=== PATIENT | female | born 1965 | race Caucasian/White ===

== ENCOUNTER 2016-09-24 21:42 | Emergency (ER) | payer BC ==
[2016-09-24 19:01] LABS: BASOPHILS 0.5 %; BASOPHILS ABSOLUTE 0.05 10/3/uL (0.0-0.16); EOSINOPHILS 3.3 %; EOSINOPHILS ABSOLUTE 0.31 10/3/uL (0.0-0.53); ER CBC TAT 0 Hrs 05 Mins; HEMATOCRIT 45.8 % (36.0-48.0); HEMOGLOBIN 15.8 g/dL (12.0-16.0); IMMATURE GRANULOCYTES 0.2 %; IMMATURE GRANULOCYTES ABSOLUTE 0.02 10/3/uL (0.0-0.11); LYMPHOCYTES 29.7 %; LYMPHOCYTES ABSOLUTE 2.82 10/3/uL (0.67-4.30); MANUAL DIFF NO %; MEAN CORPUS HGB CONC 34.5 g/dL (32.0-36.0); MEAN CORPUSCULAR VOLUME 95.6 fL (80-100); MEAN PLATELET VOLUME 9.7 fL (9.2-13.0); MONOCYTES 8.9 %; MONOCYTES ABSOLUTE 0.85 10/3/uL (0.21-1.20); NEUTROPHILS 57.4 %; NEUTROPHILS ABSOLUTE 5.45 10/3/uL (2.02-8.40); PLATELET COUNT 347 10/3/uL (150-400); RBC DISTRIBUTION WIDTH 13.7 % (12.0-16.0); RED CELL COUNT 4.79 10/6/uL (4.0-5.6); WHITE BLOOD CELLS 9.5 10/3/uL (4.5-10.5)
[2016-09-24 19:08] LABS: INTERNATIONAL NORMAL RATI 2.1 UNITS (-); PARTIAL THROMBO TIME 47.8 SEC (22.5-37.2)
[2016-09-24 19:18] LABS: BUN (BLOOD UREA NITROGEN) 13 MG/DL (6-23); CALCIUM, SERUM 9.4 MG/DL (8.5-10.4); CHEST PAIN PROFILE TAT 0 Hrs 22 Mins; CHLORIDE, SERUM 101 MMOL/L (96-112); GFR AFRICAN AMERICAN 56 ML/MIN (>=60); GFR NON AFRICAN AMERICAN 48 ML/MIN (>=60); GLUCOSE, SERUM 75 MG/DL (60-99); POTASSIUM, SERUM 3.9 MMOL/L (3.5-5.3); SODIUM, SERUM 138 MMOL/L (135-148); TROPONIN I <0.02 NG/ML (<0.05)
[2016-09-24 19:20] LABS: CO2 (CARBON DIOXIDE) 30 MMOL/L (24-34); CREATININE 1.28 MG/DL (0.55-1.02)
[2016-10-13] MEDS ORDERED: ASAB PO (08:43)
[2016-10-13] MEDS ORDERED: COREG6 PO (08:43)
[2016-10-13] MEDS ORDERED: SUCR PO (08:44)
[2016-10-13] MEDS ORDERED: MAX25 PO (08:44)
[2016-10-13] MEDS ORDERED: PROAIRRESP INH (08:44)
[2016-10-13] MEDS ORDERED: VIVELLE SY0.1 MG/24 TOP (08:44)
[2016-10-13] MEDS ORDERED: VOLTAREN1 % TOP (08:45)
[2016-10-13] MEDS ORDERED: AMB10 PO (08:45)
[2016-10-27] MEDS ORDERED: [UNRECOGNIZED DRUG - CODE] PO (09:17)
[2016-11-23] MEDS ORDERED: DORYX100 MG PO (10:43)
[2016-12-05] MEDS ORDERED: ULTRAM50 PO (12:27)
== END 2016-09-24 23:50 | disposition home or self-care (01) ==
LOC: ER 21:42
PROVIDERS: Emergency Medicine
DX: R07.9 Chest pain, unspecified (principal); R06.00 Dyspnea, unspecified; N17.9 Acute kidney failure, unspecified; J45.909 Unspecified asthma, uncomplicated; Z87.442 Personal history of urinary calculi; Z85.828 Personal history of other malignant neoplasm of skin; Z88.2 Allergy status to sulfonamides; Z88.1 Allergy status to other antibiotic agents
CPT/HCPCS: 71020; 71275; 80048; 83735; 84484; 85025; 85610; 85730; 93005; 99285; Q9967

== ENCOUNTER 2016-09-25 17:14 | Inpatient (IN) | payer BC ==
--- NOTE | ~2016-09-25 | HP ---
History And Physical [place] [address] [facility] [place]. [address] NAME: OLESYA FATIMA : 65 STATUS : ADM Tyesha PAT#: [id number] AGE: 51 ADM/REG DATE : 09/25/16 MR#: [id number] REPORT SERV DATE: 09/26/16 DICTATED BY: JR. POLLARD WILLIAM JOHN DATE: 09/25/16 REPORT STATUS : Draft TRANSCRIBED BY: YA DATE: 09/25/16 DATE OF ADMISSION: 09/25/2016 HISTORY OF PRESENT ILLNESS: A 51-year-old white female, transferred from [facility] in [place], [place] for hypoxia. The patient says the episode began 4 to 6 months ago with fatigue, hacking cough, mostly nonproductive, occasionally productive of frothy white sputum and hoarseness of 6 days duration. Then about two days ago, she felt poorly. They checked her blood pressure at home and did not get a reading. She also had substernal chest pain which was reported to be substernal without radiation. It was accompanied by nausea, but no vomiting. There was dizziness, shortness of breath. There were no identified likely aggravating or alleviating factors. She came to the emergency room at [facility] where workup was largely negative except hypoxia which improved with conservative measures. She had an appointment with her cigarette packing machine operator this morning. She went to her Medical Sales Associate's appointment, and during the appointment, developed diaphoresis, shortness of breath, and hypoxia, and was sent to [facility] where the workup was as below. She was subsequently transferred to [facility] for further testing. Currently, the patient denies all complaints except shortness of breath. She is saturating approximately 90% to 92% on 3 L oxygen by nasal cannula. PAST MEDICAL HISTORY: 1. Reported history of diastolic heart failure, followed by Dr. Lockhart. 2. Hypothyroidism. 3. Fibromyalgia. 4. Anxiety and depression. 5. Dyslipidemia. 6. Raynaud syndrome. 7. History of transient ischemic attack. 8. History of cholecystectomy. 9. History of left ACL repair. 10. section. 11.Appendectomy. 12.Hysterectomy. 13.History of factor V Leiden mutation. MEDICATIONS: 1. Bupropion 100 daily. 2. Coreg 6.25 twice a day. 3. Coumadin 5 mg on Sunday, , Sunday; 2.5 mg on Sunday, Sunday, Sunday, and Sunday. 4. Zetia 10 mg daily. 5. Klonopin 1 mg daily. 6. Pravachol 20 mg daily. 7. Synthroid 100 mcg daily. History And Physical [address] [place]. [address] NAME: OLESYA FATIMA : 65 STATUS : ADM Tyesha PAT#: [id number] AGE: 51 ADM/REG DATE : 09/25/16 MR#: [id number] REPORT SERV DATE: 09/26/16 DICTATED BY: JR. POLLARD WILLIAM JOHN DATE: 09/25/16 REPORT STATUS : Draft TRANSCRIBED BY: YA DATE: 09/25/16 ALLERGIES: AZITHROMYCIN AND SULFA. FAMILY HISTORY: Mother living in her 70s, has a history of stroke, hypothyroidism, and hypertension. Father living in his 70s, has a history of myocardial infarction, bladder cancer, and dementia. SOCIAL HISTORY: Lives in [place] with her and son. She smoked approximately 1/2-pack year total, quitting over 10 years ago. Denies alcohol or illicit drugs. She is a housewife. REVIEW OF SYSTEMS: Negative in all 12 systems reviewed except does admit to recent weight gain, headache, palpitations, chronic cough as above, chronic shortness of breath as above, occasional nausea without vomiting, recent diarrhea, history of depression, and factor V Leiden mutation. PHYSICAL EXAMINATION: VITAL SIGNS: Temperature 98.1, blood pressure 115/76, heart rate 82, respiratory rate 16, SpO2 is 94% on 2 L. GENERAL: The patient is alert and oriented. No conversational dyspnea. No use of accessary muscles. HEENT: Her pupils are equal, round, and reactive to light. Extraocular motion intact. Sclerae are anicteric. Oropharynx clear. NECK: Supple. There is no neck vein distention. No lymphadenopathy. CARDIOVASCULAR: S1 and S2 were heard without murmurs. Regular rate and rhythm. LUNGS: Clear to auscultation. There are no crackles or wheezes. Symmetrical chest rise. ABDOMEN: Soft, nontender, bowel sounds present. EXTREMITIES: Show no clubbing, cyanosis, or edema. NEUROLOGIC: Cranial nerves 2 through 12 are intact. Strength and sensation were full and equal throughout. LYMPH NODE SURVEY: Negative in cervical and supraclavicular regions. PSYCHIATRIC: Mood and affect were appropriate. DERMATOLOGIC: Showed no rashes or other lesions. LABORATORY DATA: Laboratory yesterday at [facility] showed a white count of 9.5, a hemoglobin of 15.8, and platelets 347. PT of 23 with an INR of 2.1 and PTT of 47.8. Sodium 138, potassium 3.9, chloride 101, bicarb 30, BUN 13, creatinine 1.3. Glucose 78, magnesium 2.3, calcium 9.4. Troponin I of less than 0.02. CT angiogram of the chest showed no evidence of pulmonary embolism. There was mild bilateral basilar atelectasis and a stable fusiform mid ascending thoracic aneurysm, measuring 3.9 cm. There were changes of prior cholecystectomy. EKG from 09/24, personally interpreted, showed a sinus rhythm, rate of 83, nonspecific T changes in the anterior leads. [facility] laboratory from today showed a white count of 7.7, hemoglobin 16.3, and platelets 398. Sodium of 138, potassium 3.6, chloride 98, bicarb 31, BUN 15, creatinine 1.1, glucose 94. Total protein 7.5, albumin 3.8, calcium 8.7, total bilirubin 0.3, AST of 23, ALT of 32, alkaline phosphatase 101. PT of 29.6, INR of 2.7, troponin I of less than 0.02. TSH is 0.69. Arterial blood gas showed History And Physical [address] [address] NAME: OLESYA FATIMA : 65 STATUS : ADM Tyesha PAT#: [id number] AGE: 51 ADM/REG DATE : 09/25/16 MR#: [id number] REPORT SERV DATE: 09/26/16 DICTATED BY: JR. POLLARD WILLIAM JOHN DATE: 09/25/16 REPORT STATUS : Draft TRANSCRIBED BY: YA DATE: 09/25/16 a pH of 7.44, a pCO2 of 35, pO2 of 48. Repeat arterial blood gas showed a pH of 7.45, pCO2 of 37, pO2 of 47 on room air. EKG shows sinus rhythm, rate of 87 with flattened T-waves diffusely in the precordial leads. This again was personally interpreted. ASSESSMENT AND PLAN: This is a 51-year-old white female with: 1. Acute hypoxic respiratory failure, undetermined etiology. Differential diagnoses would include:. a. Pulmonary embolism. The patient does have factor 5 Leiden and is therapeutic on Coumadin; however, she had a CT pulmonary angiogram done yesterday making this unlikely. b. Ischemic heart disease. She did have chest pain with typical symptoms; therefore, we will check a stress test in the morning. c. Fluid overload secondary to cardiogenic source. Again, we will check echocardiogram, give a trial of Lasix 20 mg IV now and in the morning. The patient is Lasix naive. 2. Hypothyroidism. We will check a TSH. 3. Primary lung disease. We will consider pulmonary function testing if the above is negative. Of note, there was no wheezing on exam. 4. History of diastolic heart failure, followed by Dr. Lockhart. We will check an echocardiogram and see above discussion. 5. Hypothyroidism. We will continue Synthroid and check a TSH. 6. Fibromyalgia with anxiety and depression. Continue bupropion. 7. Hyperlipidemia. Continue Zetia. 8. Factor 5 Leiden. We will continue Coumadin and ask pharmacy to dose. 9. Observation status. 10.I will follow. EDILBERTO/YA Karri Pollard Jr, MD / [id number]
--- NOTE | ~2016-09-25 | CN ---
Consultation Report [facility] [address] [place]. [address] NAME: DENNISE ALBERTS : 65 STATUS : ADM Tyesha PAT#: [id number] AGE: 51 ADM/REG DATE : 09/25/16 MR#: [id number] REPORT SERV DATE: 09/26/16 DICTATED BY: SAY ROMERO DATE: 09/26/16 REPORT STATUS : Draft TRANSCRIBED BY: MODL DATE: 09/26/16 CONSULTATION NOTE DATE OF CONSULTATION: 09/26/2016 CHIEF COMPLAINT: Shortness of breath and hypoxemia. HISTORY OF PRESENT ILLNESS: Ms. Dennise Alberts is a pleasant 51-year-old white female with a past medical history significant for hypothyroidism, on replacement; TIA; anxiety and depression who presents to [facility] as a transfer from an outside facility. It should be noted that Ms. Alberts has not been hospitalized recently and has done fairly well as an outpatient. Ms. Alberts is not currently followed by a talent development consultant. She does not usually require supplemental oxygen. She does have an albuterol inhaler, which she uses infrequently for her history of asthma. The patient states that she quit smoking over 20 years ago, prior to this time, she might have smoked two or three cigarettes per day for a few years. She does confirm snoring. Her spouse denies any witnessed apneas or awakenings from sleep with gasping for air. She describes her exercise tolerance as somewhat limited, being able to walk approximately 50 yards before experiencing some degree of shortness of breath. Ms. Alberts states that she has had some issues with shortness of breath over the last four to six months. She has also had a concomitant nonproductive cough over this period of time as well. She states that more recently she did have a bout with bronchitis for which she received some antibiotics without significant improvement in her cough. She did see her primary care physician who felt that this might be allergy or sinus related. She did eventually establish with an stonecutter apprentice hand and was recently undergoing allergy shots. More recently, her breathing became more noticeable, and as such, she presented to an outside facility. There upon arrival, she was found to be normotensive and afebrile. She did undergo arterial blood gas sampling on room air which demonstrated a PaO2 of 48. The patient has also had some chest pain as well and as such was transferred to [facility] for further assessment. Upon arrival, the patient has undergone a CTA of the chest which did not demonstrate any pulmonary embolism. There was some atelectasis noted in the bases. She has undergone a myocardial perfusion test, which had a low probability of ischemia. She has undergone an echocardiogram, although this has not been resulted. Because of her hypoxemia, she has been referred to the Pulmonary Service for further assessment. Currently, Ms. Alberts is on 2 liters of supplemental oxygen with appropriate oxygen saturations. She denies any dyspnea at rest. She does have complaints of a dry nonproductive cough. She denies any wheezing. She does have occasional upper respiratory infections. She denies past history of pneumonias. She denies a formal diagnosis of asthma, bronchitis, or emphysema. The patient does have complaints of bouts of occasional hypotension and some recent chest Consultation Report [address] [place]. [address] NAME: DENNISE ALBERTS : 65 STATUS : ADM Tyesha PAT#: [id number] AGE: 51 ADM/REG DATE : 09/25/16 MR#: [id number] REPORT SERV DATE: 09/26/16 DICTATED BY: SAY ROMERO DATE: 09/26/16 REPORT STATUS : Draft TRANSCRIBED BY: YA DATE: 09/26/16 pain, although this is resolved today. She denies any murmurs or palpitations. She denies any orthopnea or paroxysmal nocturnal dyspnea. In regard to constitutional symptoms, she does confirm occasional symptoms consistent with reflux. She denies any fever, chills, nausea, vomiting, chest pain, abdominal pain, or edema today. PAST MEDICAL HISTORY: 1. Hypothyroidism. 2. Anxiety and depression. 3. Dyslipidemia. 4. TIA. 5. Raynaud syndrome. 6. Factor V Leiden mutation. PAST SURGICAL HISTORY: 1. Appendectomy. 2. Total hysterectomy with bilateral salpingo-oophorectomy. 3. . 4. Cholecystectomy. FAMILY HISTORY: The patient states that there is a strong family history of asthma and heart disease. SOCIAL HISTORY: The patient is with her currently at bedside. They have children who are in good health. She worked in several occupations in the past where she may have been exposed to environmental exposures. That being said, she denies any known exposures to dust, silica, or asbestos. TOBACCO/ALCOHOL: As previously mentioned, the patient is a remote smoker. She denies any recent alcohol use or illicit drug use. MEDICATIONS: 1. Bupropion 100 mg. 2. Carvedilol 6.25 mg. 3. Warfarin 2.5 mg. 4. Zetia 10 mg. 5. Clonazepam 1 mg. 6. Pravastatin 10 mg. 7. Levothyroxine 100 mcg. ALLERGIES: THE PATIENT HAS KNOWN ALLERGY TO SULFA AND ERYTHROMYCIN. REVIEW OF SYSTEMS: A complete review of systems was performed with the pertinent positives and negatives Consultation Report [place] [id number] [place]. [address] NAME: DENNISE ALBERTS : 65 STATUS : ADM Tyesha PAT#: [id number] AGE: 51 ADM/REG DATE : 09/25/16 MR#: [id number] REPORT SERV DATE: 09/26/16 DICTATED BY: SAY ROMERO DATE: 09/26/16 REPORT STATUS : Draft TRANSCRIBED BY: YA DATE: 09/26/16 contained within the body of the HPI. PHYSICAL EXAMINATION: VITAL SIGNS: Blood pressure is 124/79, heart rate is 87, T-max is 98.0, respiratory rate is 18, and SpO2 is 95% on 2 liters. GENERAL: The patient is a pleasant, well-nourished/well-developed female who is not currently exhibiting any signs of acute distress. Skin: Skin with appropriate texture and turgor. No rashes, lesions, or ulcers. Nails are clear without cyanosis or clubbing. HEENT: Head: Skull is normocephalic/atraumatic. Facies symmetric. No masses or lesions. Eyes: Sclera anicteric, conjunctiva pink without exudates. Extra ocular movements intact. Pupils are equal, round, reactive to light. Ears: Auricles and tragus without pain to palpation. Hearing is grossly intact. Nose: Bilateral nasal patency. Sinuses without tenderness upon palpation. Throat: Dentition. Lips, oral mucosa, tongue, palate, and pharynx pink and moist without lesions. Uvula rises equally on phonation. Tongue midline without deviation. NECK: Neck supple. Trachea midline. No cervical lymphadenopathy appreciated. THORAX/LUNGS: Thorax is symmetric with equal chest rise. Breath sounds audible through entire field. No rales, wheezes, rhonchi CARDIOVASCULAR: Regular rate and rhythm. No murmurs, rubs, or gallops. Anterior chest without thrills, heaves, or lifts. ABDOMEN: Soft. Non-distended, non-tender. Active bowel sounds in all four quadrants. No hepatosplenomegaly noted. PERIPHERAL VASCULAR: No edema. No varicosities, stasis changes, open sores, ulcerations, or phlebitis. 2+ pulses in radial and dorsalis pedis. MUSCULOSKELETAL: Full AROM and PROM in all joints. No evidence of erythema, deformity, or crepitus. NEUROLOGIC: CN II - XII grossly intact. Good muscle bulk and tone bilaterally. Strength 5/5 throughout. PSYCHIATRIC: Patient demonstrates good judgment and insight. Pt is A&O x 3. ACCESSORY DATA: Reveals a white blood cell count of 8100, hemoglobin and hematocrit of 15.5 and 44.8. PT and INR of 24.6 and 22.2. is 4.2 and creatinine is 1.04. CTA of the chest reveals no pulmonary emboli. There are bilateral atelectatic changes in the bases appreciated. Nuclear myocardial testing reveals a left ventricular ejection fraction greater than 60%. There is a low risk of ischemic process. IMPRESSION: 1. Acute hypoxemic respiratory failure. 2. Chronic cough. 3. Gastroesophageal reflux disease. 4. Asthma. PLAN: 1. In regard to the patient's documented hypoxemia, there is no obvious etiology. In an Consultation Report [address] [address] NAME: DENNISE ALBERTS : 65 STATUS : ADM Tyesha PAT#: [id number] AGE: 51 ADM/REG DATE : 09/25/16 MR#: [id number] REPORT SERV DATE: 09/26/16 DICTATED BY: SAY ROMERO DATE: 09/26/16 REPORT STATUS : Draft TRANSCRIBED BY: YA DATE: 09/26/16 attempt to better elucidate the cause of her hypoxemia, we will order an echocardiogram with a bubble study to rule out shunt. We will obtain a V/Q scan to rule out chronic thromboembolic disease. We will obtain pulmonary function testing with DLCO as well. 2. In regard to the patient's chronic cough, she does provide a history of gastroesophageal reflux disease, upper airway cough syndrome, asthma, we would certainly offer her outpatient followup with further attention to her chronic cough. The aforementioned impression and plan has been discussed with Dr. Krishnamurthy, who will follow further recommendations. We thank you for this consult and look forward to participating in the care of Dennise Alberts. GBS/MODL Say Romero PA-C / [id number] CC: Karri Jacob Jr, MD Brandon Watters, M.D.
--- NOTE | ~2016-09-25 | PUL ---
[address] [address] NAME: OLESYA FATIMA : 65 STATUS : DIS IN PAT#: [id number] AGE: 51 ADM/REG DATE : 09/25/16 MR#: [id number] REPORT SERV DATE: 09/30/16 DICTATED BY: LANCE PUGA DATE: 09/30/16 REPORT STATUS : Draft TRANSCRIBED BY: MODL DATE: 09/30/16 PULMONARY FUNCTION TEST STUDY: Overnight pulse oximetry on 2 L nasal cannula. FINDINGS: Total recording time 6 hours 36 minutes. Mean pulse 80. Mean oxygen saturation 96.8%. Time with an oxygen saturation of less than 88% is 0. INTERPRETATION: The patient has no hypoxia on 2 L nasal cannula. HFQ/MODL Lance Puga MD / [id number] CC: Rl Rich M.D.
--- NOTE | ~2016-09-25 | PUL ---
[address] [address] NAME: OLESYA FATIMA : 65 STATUS : DIS IN PAT#: [id number] AGE: 51 ADM/REG DATE : 09/25/16 MR#: [id number] REPORT SERV DATE: 09/30/16 DICTATED BY: LANCE PUGA DATE: 09/30/16 REPORT STATUS : Draft TRANSCRIBED BY: MODL DATE: 09/30/16 PULMONARY FUNCTION TEST DIAGNOSIS: Dyspnea. SPIROMETRY: FEV1 of 95%, FVC 93%, total lung capacity 94%. DLCO 84%. INTERPRETATION: Normal spirometry. No airflow obstruction. Normal plethysmography. Normal diffusion capacity. HFQ/MODL Lance Puga MD / [id number] CC: Rl Rich M.D.
--- NOTE | ~2016-09-25 | PUL ---
[place] [address] [place]. [address] NAME: OLESYA FATIMA : 65 STATUS : DIS IN PAT#: [id number] AGE: 51 ADM/REG DATE : 09/25/16 MR#: [id number] REPORT SERV DATE: 10/01/16 DICTATED BY: LANCE PUGA DATE: 10/01/16 REPORT STATUS : Draft TRANSCRIBED BY: MODL DATE: 10/01/16 PULMONARY FUNCTION TEST DIAGNOSES: Dyspnea and hypoxia. SPIROMETRY: FEV1 of 96%, FVC 99%, ratio of 77. Upon review of the flow volume loop, this is reproducible and volume time shows that the patient exhales greater than 6 seconds on 2 out of the 3 tries. INTERPRETATION: Normal spirometry. HFQ/MODL Lance Puga MD / [id number] CC: Rl Rich M.D.
--- NOTE | ~2016-09-25 | DS ---
Discharge Summary [facility] [address] [place]. [address] NAME: OLESYA FATIMA : 65 STATUS : DIS IN PAT#: [id number] AGE: 51 ADM/REG DATE : 09/25/16 MR#: [id number] REPORT SERV DATE: 10/04/16 DICTATED BY: SABINO ARAUZ DATE: 10/03/16 REPORT STATUS : Draft TRANSCRIBED BY: MODPb DATE: 10/03/16 ADMISSION DATE: 09/25/2016 DISCHARGE DATE: 09/28/2016 DISCHARGE DIAGNOSES: 1. Shortness of breath, unclear etiology. 2. Hypothyroidism. 3. Fibromyalgia. 4. History of factor V Leiden. 5. History of Raynaud's syndrome. 6. Small ascending thoracic aortic aneurysm, 3.9 cm. 7. History of possible neurocardiogenic syncope. HISTORY: This patient has had complaints of gradually worsening fatigue for about six months. She reports of bronchitis treated by ER in June 2016 with antibiotics. Then she went to see an infant babysitter, was found to have allergies, was in the process of getting set up for allergy shots. The patient went to [facility] Emergency Room in [place], [place]. Had an arterial blood gas done at their emergency room, the report of which showed pH 7.44, pCO2 of 35, pO2 of 48, repeat pH 7.45, pCO2 of 37, pO2 of 47. Because of this, the patient was referred to [facility] for further evaluation. They did a CTA of the chest at that facility which showed no evidence for pulmonary embolism. Here at our facility, echocardiogram showed left ventricular ejection fraction 50%. Positive bubble test. A nuclear stress test showed no evidence for ischemia and normal ejection fraction. Her ventilation perfusion lung scan on 09/28/2016 was completely normal. Chest x-ray here was normal. Pulmonary function tests, normal. Overnight oximetry on 2 L showed no hypoxia. Pulmonary saw her in consultation with PA, Say Rodriguez; and academic support assistant, Dr. Krishnamurthy. There was no clear etiology for the patient's symptoms. Repeat O2 saturations here revealed that even on room air her lowest dose O2 saturation was 91% with ambulating and this was off oxygen. Therefore, the patient did not qualify for home oxygen supplementation and it is suggested the possibility that the arterial blood gas reported by the other emergency room might have actually been a mixed venous sample. On 09/28/2016, we did a blood gas here on room air, pH 7.44, pCO2 of 31, pO2 of 67, bicarbonate 20.5, saturation 94.4. To do a shunt study, Pulmonary then put her on 100% oxygen and pH 7.43, pCO2 of 37, pO2 of 299, bicarbonate 23.9. This does suggest a suboptimal response to 100% oxygen and the patient is to follow up with Pulmonary, Dr. Krishnamurthy, in the office, with her own PCP as well. DISCHARGE MEDICATIONS: Wellbutrin 100 mg daily, Zetia 10 mg daily, Synthroid 50 mcg daily, Pravachol 10 mg at bedtime, Coumadin which she takes for her factor 5 Leiden, actually it appears she takes 2.5 mg on every evening, Klonopin a mg daily p.r.n. anxiety, which is a chronic medication for her. RSMaria E/YA Sabino Discharge Summary [place] [address] [place]. [address] NAME: OLESYA FATIMA : 65 STATUS : DIS IN PAT#: [id number] AGE: 51 ADM/REG DATE : 09/25/16 MR#: [id number] REPORT SERV DATE: 10/04/16 DICTATED BY: SABINO ARAUZ DATE: 10/03/16 REPORT STATUS : Draft TRANSCRIBED BY: MODL DATE: 10/03/16 Jose Arauz M.D. / [id number] CC: Rl Rich M.D. Allen E Atchley, M.D. Michael C Allan, M.D. Malathi Krishnamurthy MD
[2016-09-25 19:56] LABS: TROPONIN I <0.02 NG/ML (<0.05); ULTRASENSITIVE TSH 0.565 MCIU/ML (0.358-3.740)
[2016-09-25 20:49] LABS: ASCORBIC ACID (UR NOT ORDER) NEG (NEG); BILIRUBIN, URINE NEGATIVE (NEG); KETONE, URINE TRACE MG/DL (NEG); LEUKOCYTE ESTERASE(NOT OR NEG (NEG); WBC (NOT ORDERED) (RFLEX) 1 (0-5)
[2016-09-26] MEDS ORDERED: COREG6 PO (01:32)
[2016-09-26] MEDS ORDERED: WELLXL150 PO (01:32)
[2016-09-26] MEDS ORDERED: C5 PO (01:34)
[2016-09-26] MEDS ORDERED: C25 PO (01:34)
[2016-09-26] MEDS ORDERED: KLONO1 PO (01:35)
[2016-09-26] MEDS ORDERED: ZETIA PO (01:35)
[2016-09-26] MEDS ORDERED: PRAVAC PO (01:36)
[2016-09-26] MEDS ORDERED: SYN.05 PO (01:36)
[2016-09-26 04:55] LABS: BASOPHILS 0.5 %; BASOPHILS ABSOLUTE 0.04 10/3/uL (0.0-0.16); EOSINOPHILS ABSOLUTE 0.32 10/3/uL (0.0-0.53); HEMATOCRIT 44.8 % (36.0-48.0); HEMOGLOBIN 15.5 g/dL (12.0-16.0); IMMATURE GRANULOCYTES 0.2 %; IMMATURE GRANULOCYTES ABSOLUTE 0.02 10/3/uL (0.0-0.11); LYMPHOCYTES 35.3 %; LYMPHOCYTES ABSOLUTE 2.85 10/3/uL (0.67-4.30); MEAN CORPUS HGB CONC 34.6 g/dL (32.0-36.0); MEAN CORPUSCULAR HEMOGLOB 32.8 pg (26.0-34.0); MEAN CORPUSCULAR VOLUME 94.7 fL (80-100); MEAN PLATELET VOLUME 9.7 fL (9.2-13.0); MONOCYTES 9.8 %; MONOCYTES ABSOLUTE 0.79 10/3/uL (0.21-1.20); NEUTROPHILS 50.2 %; NEUTROPHILS ABSOLUTE 4.06 10/3/uL (2.02-8.40); PLATELET COUNT 349 10/3/uL (150-400); RBC DISTRIBUTION WIDTH 13.6 % (12.0-16.0); RED CELL COUNT 4.73 10/6/uL (4.0-5.6); WHITE BLOOD CELLS 8.1 10/3/uL (4.5-10.5)
[2016-09-26 04:56] LABS: MANUAL DIFF NO %
[2016-09-26 05:06] LABS: BUN (BLOOD UREA NITROGEN) 15 MG/DL (6-23); CALCIUM, SERUM 8.7 MG/DL (8.5-10.4); CHLORIDE, SERUM 99 MMOL/L (96-112); CO2 (CARBON DIOXIDE) 28 MMOL/L (24-34); CREATININE 1.04 MG/DL (0.55-1.02); GFR AFRICAN AMERICAN 72 ML/MIN (>=60); GFR NON AFRICAN AMERICAN 62 ML/MIN (>=60); HDL CHOLESTEROL 54 MG/DL (> 49); POTASSIUM, SERUM 3.3 MMOL/L (3.5-5.3); SODIUM, SERUM 136 MMOL/L (135-148)
[2016-09-26 05:10] LABS: CHOL/HDL RATIO(NOT ORDER) 4.7 (0-5); CHOLESTEROL 254 MG/DL (< 200); GLUCOSE, SERUM 100 MG/DL (60-99); LDL CHOLESTEROL 144 MG/DL (< 130); NON-HDL CHOLESTEROL 200 MG/DL (< 160); TRIGLYCERIDE 280 MG/DL (< 150)
[2016-09-26 05:33] LABS: INTERNATIONAL NORMAL RATI 2.2 UNITS (-); PROTIME (NOT ORD) 24.6 SEC (12.0-14.5)
[2016-09-27 05:10] LABS: BUN (BLOOD UREA NITROGEN) 16 MG/DL (6-23); CHLORIDE, SERUM 101 MMOL/L (96-112); CO2 (CARBON DIOXIDE) 27 MMOL/L (24-34); CREATININE 0.97 MG/DL (0.55-1.02); GFR AFRICAN AMERICAN 78 ML/MIN (>=60); GFR NON AFRICAN AMERICAN 68 ML/MIN (>=60); GLUCOSE, SERUM 105 MG/DL (60-99); POTASSIUM, SERUM 3.4 MMOL/L (3.5-5.3); SODIUM, SERUM 137 MMOL/L (135-148)
[2016-09-27 05:30] LABS: INTERNATIONAL NORMAL RATI 2.3 UNITS (-); PROTIME (NOT ORD) 24.8 SEC (12.0-14.5)
[2016-09-28 05:06] LABS: BUN (BLOOD UREA NITROGEN) 13 MG/DL (6-23); CALCIUM, SERUM 8.7 MG/DL (8.5-10.4); CHLORIDE, SERUM 107 MMOL/L (96-112); CO2 (CARBON DIOXIDE) 25 MMOL/L (24-34); CREATININE 0.92 MG/DL (0.55-1.02); GFR AFRICAN AMERICAN 84 ML/MIN (>=60); GFR NON AFRICAN AMERICAN 72 ML/MIN (>=60); GLUCOSE, SERUM 105 MG/DL (60-99); POTASSIUM, SERUM 3.8 MMOL/L (3.5-5.3); SODIUM, SERUM 142 MMOL/L (135-148)
[2016-09-28 05:46] LABS: INTERNATIONAL NORMAL RATI 2.8 UNITS (-)
[2016-09-28 05:49] LABS: PROTIME (NOT ORD) 29.1 SEC (12.0-14.5)
[2016-09-28 18:19] LABS: BE (BASE EXCESS) -2.6 MEQ/L (0 +/- 2.5); CARBOXYHEMOGLOBIN 0.3 % (0-3); HCO3 (ACTUAL BICARBONATE) 20.5 MEQ/L (23-27); HEMOBLOGIN CONTENT 14.6 G/DL (12-16); INSTRUMENT SERIAL # 35151; METHEMOGLOBIN 0.4 % (0-3); O2 CONTENT 19.2 VOL% (18-24); OPERATOR ID 14382; PCO2 (CO2 TENSION) 31 MMHG (35-45); PO2 (O2 TENSION) 67 MMHG (79-93); SAMPLE Arterial; pH 7.44 (7.37-7.43)
[2016-09-28 19:22] LABS: BE (BASE EXCESS) -0.1 MEQ/L (0 +/- 2.5); CARBOXYHEMOGLOBIN 0.9 % (0-3); HCO3 (ACTUAL BICARBONATE) 23.9 MEQ/L (23-27); HEMOBLOGIN CONTENT 14.1 G/DL (12-16); INSTRUMENT SERIAL # 8087; METHEMOGLOBIN 0.3 % (0-3); O2 CONTENT 20.3 VOL% (18-24); OPERATOR ID 23712; PCO2 (CO2 TENSION) 37 MMHG (35-45); PO2 (O2 TENSION) 299 MMHG (79-93); SAMPLE Arterial; pH 7.43 (7.37-7.43)
[2016-09-28 19:23] LABS: DEVICE NRB
[2016-10-13] MEDS ORDERED: ASAB PO (08:43)
[2016-10-13] MEDS ORDERED: COREG6 PO (08:43)
[2016-10-13] MEDS ORDERED: PROAIRRESP INH (08:44)
[2016-10-13] MEDS ORDERED: VIVELLE SY0.1 MG/24 TOP (08:44)
[2016-10-13] MEDS ORDERED: MAX25 PO (08:44)
[2016-10-13] MEDS ORDERED: SUCR PO (08:44)
[2016-10-13] MEDS ORDERED: AMB10 PO (08:45)
[2016-10-13] MEDS ORDERED: VOLTAREN1 % TOP (08:45)
[2016-10-27] MEDS ORDERED: [UNRECOGNIZED DRUG - CODE] PO (09:17)
[2016-11-23] MEDS ORDERED: DORYX100 MG PO (10:43)
[2016-12-05] MEDS ORDERED: ULTRAM50 PO (12:27)
== END 2016-09-28 20:08 | disposition home or self-care (01) | DRG 204 ==
LOC: CDU2 17:14
PROVIDERS: Hospitalist; Internal Medicine
DX: R06.02 Shortness of breath (principal); D68.51 Activated protein C resistance; I50.32 Chronic diastolic (congestive) heart failure; K21.9 Gastro-esophageal reflux disease without esophagitis; J45.909 Unspecified asthma, uncomplicated; M79.7 Fibromyalgia; E03.9 Hypothyroidism, unspecified; F41.9 Anxiety disorder, unspecified; F32.9 Major depressive disorder, single episode, unspecified; I73.00 Raynaud's syndrome without gangrene; E78.5 Hyperlipidemia, unspecified; Z86.73 Personal history of transient ischemic attack (TIA), and cerebral infarction without residual deficits; Z90.49 Acquired absence of other specified parts of digestive tract; Z87.891 Personal history of nicotine dependence
CPT/HCPCS: 36600; 71020; 71275; 78452; 78582; 80048; 80061; 81001; 82805; 83735; 83880; 84132; 84443; 84484; 85025; 85610; 85730; 93005; 93017; 93307; 94010; 94640; 94726; 94729; 94762; 99285; A9270-GY; A9502; A9540; A9567; C8929; J0280; J1940; J2785; Q9957; Q9967